=== PATIENT | male | born 1980 | race Caucasian/White ===

== ENCOUNTER 2018-04-22 13:45 | Emergency (ER) | payer BC ==
[~2018-04-22] VITALS: Ht 165.1 cm; Wt 77.1 kg
[2018-04-22] MEDS ORDERED: LIPITOR10 MG PO (13:50)
[2018-04-22] MEDS ORDERED: IBU800 MG PO (13:50)
[2018-04-22] MEDS ORDERED: HYDR25T PO (13:50)
[2018-04-22] MEDS ORDERED: VITAMIN D400 I1 PO (13:51)
[2018-04-22] MEDS ORDERED: AUGMENTIN 875875 MG PO (13:57)
[2018-04-22] MEDS ORDERED: ZOFRAN4 MG PO (13:57)
== END 2018-04-22 14:10 | disposition home or self-care (01) ==
LOC: ED 13:45
DX: S00.83XA Contusion of other part of head, initial encounter (principal); R03.0 Elevated blood-pressure reading, without diagnosis of hypertension; Z79.899 Other long term (current) drug therapy; W01.198A Fall on same level from slipping, tripping and stumbling with subsequent striking against other object, initial encounter; Y93.89 Activity, other specified; Y92.89 Other specified places as the place of occurrence of the external cause; Y99.9 Unspecified external cause status

== ENCOUNTER 2018-04-24 14:31 | Emergency (ER) | payer BC ==
[~2018-04-24] VITALS: Ht 165.1 cm; Wt 77.1 kg
[~2018-04-24 14:31] MED LIST: AUGMENTIN 875875 MG PO; HYDR25T PO; IBU800 MG PO; LIPITOR10 MG PO; VITAMIN D400 I1 PO; ZOFRAN4 MG PO
== END 2018-04-24 14:41 | disposition home or self-care (01) ==
LOC: ED 14:31
DX: S01.511D Laceration without foreign body of lip, subsequent encounter (principal); L08.9 Local infection of the skin and subcutaneous tissue, unspecified; Z79.899 Other long term (current) drug therapy; X58.XXXD Exposure to other specified factors, subsequent encounter

== ENCOUNTER 2022-06-07 12:03 | Emergency (ER) | payer BC ==
[~2022-06-07] VITALS: Wt 81.6 kg
[~2022-06-07 12:03] MED LIST changes: +AMOXICILLIN500 M2 PO; +CLINDAMYCIN HC300 MG PO
[2022-06-07 13:25] LABS: HEMATOCRIT 38.6 % (42.0-52.0); MEAN CELL VOLUME 87.5 fl (80.0-94.0); MEAN CORPUSCULAR HGB 30.2 pg (27.0-31.0); MEAN CORPUSCULAR HGB CONC 34.5 g/dl (33.0-37.0); PLATELET COUNT AUTOMATED 443 10*3/uL (130-400); RED BLOOD COUNT 4.41 10*6/uL (4.50-5.90); RED CELL DISTRI WIDTH 12.3 % (0-14.5); WHITE BLOOD COUNT 8.7 10*3/uL (4.8-10.8)
[2022-06-07 13:26] LABS: MANUAL DIFF REFLEX YES
[2022-06-07 13:34] LABS: ALKALINE PHOSPHATASE 94 U/L (45-117); BASOPHILS 2 % (0-1); BUN 10 mg/dl (7-24); CHLORIDE 104 mmol/L (98-107); CREATININE 0.59 mg/dL (0.70-1.30); LIPASE 97 U/L (73-393); OVALOCYTES FEW; POLYCHROMASIA SLIGHT; POTASSIUM 3.5 mmol/L (3.5-5.1); SGOT/AST 32 IU/L (3-35); SGPT/ALT 58 U/L (12-78); SODIUM 138 mmol/L (136-145); TOTAL CELLS COUNTED 100 #CELLS; TOTAL PROTEIN 7.3 gm/dL (6.4-8.2)
[2022-06-07 13:35] LABS: PLATELET SUFFICIENCY HIGH (NORMAL)
== END 2022-06-07 14:35 | disposition home or self-care (01) ==
LOC: ED 12:03
PROVIDERS: Physician Assistant
DX: R10.9 Unspecified abdominal pain (principal); R11.2 Nausea with vomiting, unspecified; Z79.899 Other long term (current) drug therapy